=== PATIENT | female | born 1960 | race Caucasian/White ===

== ENCOUNTER 2017-11-17 01:41 | Emergency (ER) | payer BC ==
[~2017-11-17] VITALS: Ht 167.6 cm; Wt 90.0 kg
[2017-11-17 01:45] VITALS: BP 133/79; PULSE 124; RESP 16; TEMP 99.2; O2SAT 96
[2017-11-17] MEDS ORDERED: GLIM4TAB PO (01:56)
[2017-11-17] MEDS ORDERED: SIMV5TAB3 PO (01:56)
[2017-11-17] MEDS ORDERED: INSU1INJ14 SQ (01:58)
[2017-11-17] MEDS ORDERED: ZITHTAB PO (03:01)
[2017-11-17] MEDS ORDERED: VENTAER INH (03:01)
--- NOTE | 2017-11-17 03:01 | PD ---
HPI Chief Complaint: Respiratory Symptoms Time Seen by Provider: 02:41 Travel History International Travel<30 days: No Contact w/Intl Traveler<30days: No Traveled to known affect area: No History of Present Illness HPI 57-year-old female complains of coughing, sinus congestion sore throat, nausea vomiting. Patient states that the symptoms started last week and get worse for the past several days. Patient states that a copy persistent nonproductive. Patient denies any chest pain or shortness of breath. Patient denies abdominal pain. Patient denies any dysuria or frequency. Patient denies any fever chills. Patient has history of asthma when she was younger. Patient does not have an inhaler with her. Patient states that she has occasional wheezing for the past few days. PFSH Past Medical History High Cholesterol: Yes Diabetes: Yes Patient Takes Glucophage: No Diminished Hearing: No Tetanus Vaccination: Unknown Influenza Vaccination: No ?: Not Past Surgical History Hysterectomy: Yes Social History Alcohol Use: No Tobacco Use: No Substance Use: No Allergies-Medications (Allergen,Severity, Reaction): Coded Allergies: No Known Allergies (Unverified , 11/17/17) Reported Meds & Prescriptions Reported Meds & Active Scripts Active Reported Tresiba Flextouch Pen Inj (Insulin Degludec Inj) 300 unit/3 ML Pen 40 Units SQ HS Simvastatin 5 Mg Tab Unknown Dose PO DAILY Glimepiride 4 Mg Tab 4 Mg PO DAILY Take with breakfast or first main meal Review of Systems General / Constitutional: No: Fever Eyes: No: Visual changes HENT: Positive: Congestion, No: Headaches Cardiovascular: No: Chest Pain or Discomfort Respiratory: Positive: Cough, Wheezing, No: Shortness of Breath Gastrointestinal: No: Abdominal Pain Genitourinary: No: Dysuria Musculoskeletal: No: Pain Skin: No Rash Neurologic: No: Weakness Psychiatric: No: Depression Endocrine: No: Polydipsia Hematologic/Lymphatic: No: Easy Bruising Physical Exam Narrative GENERAL: Well-nourished, well-developed patient. SKIN: Focused skin assessment warm/dry. HEAD: Normocephalic. EYES: No scleral icterus. No injection or drainage. NECK: Supple, trachea midline. No JVD or lymphadenopathy. No meningismus. TM: Clear. Throat: Nonerythematous. CARDIOVASCULAR: Regular rate and rhythm without murmurs, gallops, or rubs. RESPIRATORY: Breath sounds equal bilaterally. No accessory muscle use. Mild expiratory wheezes bilaterally. No rhonchi. GASTROINTESTINAL: Abdomen soft, non-tender, nondistended. MUSCULOSKELETAL: No cyanosis, or edema. BACK: Nontender without obvious deformity. No CVA tenderness. Neurologic exam normal. Data Data Last Documented VS Vital Signs Date Time Temp Pulse Resp B/P (MAP) Pulse Ox O2 Delivery O2 Flow Rate FiO2 11/17/17 01:45 99.2 124 16 133/79 (97) 96 Room Air MDM Medical Decision Making Medical Screen Exam Complete: Yes Emergency Medical Condition: Yes Differential Diagnosis Differential diagnosis including URI, sinusitis, bronchitis, pneumonia, reactive airway disease. Narrative Course 57-year-old female with coughing congestion sinus congestion nausea vomiting and productive cough. Diagnosis Primary Impression: Bronchitis Additional Impression: Viral syndrome Patient Instructions: General Instructions Additional Instructions: Use inhaler as needed for wheezing. Z-Teddy as directed. [id number] cough medication as needed. Follow-up with personal physician. Return if worse. Med/Other Pt SpecificInfo: Prescription(s) given Scripts Azithromycin (Zithromax Z-Teddy) 250 Mg Dspk 250 MG PO DIRECTED for Infection, #1 DSPK 0 Refills 500 MG (2 tabs) day 1, then 1 tab days 2-5. Prov: Artemio Caicedo MD 11/17/17 Albuterol 18 GM Inh (Ventolin Hfa 18 GM Inh) 90 Mcg/Act Aer 2 PUFF INH Q4-6H Y for SHORTNESS OF BREATH, #1 INHALER 0 Refills Prov: Artemio Caicedo MD 11/17/17 Disposition: 01 DISCHARGE HOME Condition: Stable Artemio Caicedo MD Nov 17, 2017 03:01
== END 2017-11-17 03:40 | disposition home or self-care (01) ==
LOC: NEPE 01:41
DX: J20.8 Acute bronchitis due to other specified organisms (principal); R11.2 Nausea with vomiting, unspecified; E78.00 Pure hypercholesterolemia, unspecified; E11.9 Type 2 diabetes mellitus without complications; Z79.899 Other long term (current) drug therapy
CPT/HCPCS: 99284